=== PATIENT | female | born 1985 | race Caucasian/White ===

== ENCOUNTER 2024-01-06 05:44 | Inpatient (IN) | payer MEDICAID ==
[2024-01-06] VITALS (18 sets, daily range): BP systolic 78–117; BP diastolic 44–71; PULSE 63–96; TEMP 97.8–98.2
[~2024-01-06] VITALS: Wt 85.0 kg
[~2024-01-06 05:44] MED LIST: BIRTH CONTROL PILLS; FERROUS SU325 MG/TAB PO; FOLIC ACID 11 MG/TA1 PO; IBU600 MG PO; LR 1,000 ML IV SCH; MULTI VITAMINS1 TAB PO; NORCO 325 MG-51 TAB PO; SYNTHROID0.05 MG/TA PO
--- NOTE | 2024-01-06 05:45 | NUR ---
Ambulatory to unit for scheduled repeat C/S, accompanied by spouse. Oriented to room, plan of care.
[2024-01-06] MEDS ORDERED: LR 1,000 ML IV SCH (06:15)
[2024-01-06] MEDS ORDERED: Meperidine 50 MG/ML 1 ML VIAL IV PRN (06:15)
[2024-01-06] MEDS ORDERED: Ondansetron 4 MG/2 ML VIAL IV PRN ×2 (06:15→10:15)
[2024-01-06] MEDS ORDERED: droPERidol 2.5 MG/ML 2 ML VIAL IV PRN (06:15)
[2024-01-06] MEDS ORDERED: diphenhydrAMINE 50 MG/ML 1 ML VIAL IV PRN (06:15)
--- NOTE | 2024-01-06 06:20 | NUR ---
REPORT FROM CHRYSTAL ZAMARRIPA. PT ARRIVED TO HOSPITAL AT 0545 AND TO ROOM JUST AFTER 0600. CHRYSTAL STRATTON IN ROOM AT THIS TIME TO START IV. THIS RN TO ROOM, CHRYSTAL STRATTON SECOND ATTEMPT AT IV; 18G TO LEFT WRIST, LABS OBTAINED FROM IV START AND SENT TO LAB. THE PATIENT DENIES ANY COMPLAINTS. LR STARTED TO LW IV AT THIS TIME. ADMISSION COMPLETED, AND CONSENTS OBTAINED. ABD CLEANED WITH HIBICLENS, NO HAIR REMOVAL NEEDED. PT HAS ON CLEAN GOWN, AND HAIR NET. SUPPORT PERSON HAS OR PPE ON. PT UP TO VOID AND AMBULATORY TO OR AT 0725. NO OTHER CONCERNS.
[2024-01-06 06:43] LABS: BASO % 0.2 % (0.0-2.0); EOS # 0.1 K/mm3 (0.0-0.7); EOS % 1.4 % (0.0-4.0); GRAN % 64.3 % (42.2-75.2); HEMOGLOBIN 12.1 g/dl (12.5-16.0); LYMPH # 1.7 K/mm3 (1.2-3.4); LYMPH % 27.8 % (20.0-51.0); MEAN CELL VOLUME 88 fl (80.0-100.0); MEAN CORPUSCULAR HEMOGLOBIN 29 pg (27-31); MEAN CORPUSCULAR HGB CONC 33 g/dl (33.0-37.0); MEAN PLATELET VOLUME 10.3 fl (7.4-10.4); MONO # 0.4 K/mm3 (0.1-0.6); MONO % 6.1 % (1.7-9.3); PLATELET COUNT 204 K/mm3 (130-400); RED BLOOD COUNT 4.17 M/mm3 (4.10-5.30); REDCELL DISTRIBUTION WIDTH-CV 14.3 % (11.5-14.5)
[2024-01-06 06:44] LABS: HEMATOCRIT 36.6 % (37.0-47.0)
[2024-01-06] MEDS ORDERED: Oxytocin 10 UNITS/ML VIAL ONE (07:07)
[2024-01-06] MEDS ORDERED: NS 30 ML IV ONE (07:07)
[2024-01-06] MEDS ORDERED: Phenylephrine 10 MG/ML VIAL ONE (07:07)
[2024-01-06] MEDS ORDERED: Ondansetron 4 MG/2 ML VIAL ONE (07:07)
[2024-01-06] MEDS ORDERED: Ketorolac 30 MG/ML VIAL ONE (07:07)
[2024-01-06] MEDS ORDERED: dexAMETHasone 10 MG/ML VIAL ONE (07:07)
[2024-01-06] MEDS ORDERED: EPINEPHrine 1 MG/1 ML Ampule ONE (07:56)
[2024-01-06] MEDS ORDERED: Magnes Hydrox (MOM) 80 MG/ML 30 ML CUP PO PRN (08:30)
[2024-01-06] MEDS ORDERED: Loratadine 10 MG TAB PO PRN (08:30)
[2024-01-06] MEDS ORDERED: Multivitamin TAB PO SCH (09:00)
--- NOTE | 2024-01-06 09:05 | NUR ---
PT IS TRANSFERRED FROM PACU TO OB FLOOR. VITAL SIGNS STABLE, LOCHIA WNL, FUNDUS FIRM AND AT THE UMBILICUS. PT DENIES PAIN AT THIS TIME. SHARP IS PATENT AND DRAINING CLEAR YELLOW URINE.
[2024-01-06] MEDS ORDERED: Measles/Mumps/Rubella Virus Vaccine Live w Diluent 0.5 ML VIAL SQ SCH (10:15)
[2024-01-06] MEDS ORDERED: Morphine 4 MG/ML VIAL IV PRN (10:15)
[2024-01-06] MEDS ORDERED: Naloxone 0.4 MG/ML VIAL IV PRN (10:15)
[2024-01-06] MEDS ORDERED: Tdap Vaccine 0.5 ML SYRINGE IM SCH (10:15)
[2024-01-06] MEDS ORDERED: oxyCODONE 5 MG TAB PO PRN (10:15)
[2024-01-06] MEDS ORDERED: Acetaminophen 500 MG TAB PO SCH (10:15)
[2024-01-06] MEDS ORDERED: LR 1,000 ML IV PRN (10:15)
[2024-01-06] MEDS ORDERED: Ibuprofen 600 MG TAB PO SCH (14:25)
[2024-01-06] MEDS ORDERED: Sennosides/Docusate 8.6-50 MG TAB PO SCH (17:00)
[2024-01-06] MEDS ORDERED: traZODone 50 MG TAB PO PRN (21:00)
[2024-01-07 03:00] VITALS: BP 96/56; PULSE 77; TEMP 98.1
[2024-01-07 07:15] VITALS: BP 98/60; PULSE 68; TEMP 98
[2024-01-07 17:00] VITALS: BP 101/54; PULSE 80; TEMP 97.8
[2024-01-07 20:30] VITALS: BP 97/57; PULSE 72; TEMP 98.1
[2024-01-08 07:22] VITALS: BP 105/57; PULSE 73; TEMP 97.8
[2024-01-08] MEDS ORDERED: ROXICODONE 55 MG/TAB PO (09:02)
== END 2024-01-08 13:45 | disposition home or self-care (01) | DRG 788 ==
LOC: OB 05:44
PROVIDERS: ADMIT Obstetrics & Gynecology
PROC: 10D00Z1 Extraction of Products of Conception, Low, Open Approach (ICD-10-PCS; principal; 2024-01-06)
DX: O34.211 Maternal care for low transverse scar from previous cesarean delivery (principal); Z3A.39 39 weeks gestation of pregnancy; Z37.0 Single live birth; O99.284 Endocrine, nutritional and metabolic diseases complicating childbirth; E03.9 Hypothyroidism, unspecified; O09.523 Supervision of elderly multigravida, third trimester
CPT/HCPCS: A9284; J0171; J0665; J0690; J1100; J1885; J2371; J2405; J2590; J7120